=== PATIENT | female | born 1990 | race Caucasian/White ===

== ENCOUNTER 2021-07-06 14:59 | Day surgery (SDC) | payer BC, SELFPAY ==
[~2021-07-06] VITALS: Ht 160 cm; Wt 75.3 kg
[2021-07-06 15:48] LABS: BILIRUBIN,URINE NEGATIVE (NEGATIVE); BLOOD, URINE NEGATIVE (NEGATIVE); CLARITY/URINE CLEAR (CLEAR); COLOR,URINE YELLOW (YELLOW); GLUCOSE,URINE NEGATIVE (NEGATIVE); KETONES,URINE NEGATIVE (NEGATIVE); LEUKOCYTE ESTERASE ,URINE NEGATIVE (NEGATIVE); NITRITE, URINE NEGATIVE (NEGATIVE); PROTEIN URINE NEGATIVE (NEGATIVE); UROBILINOGEN,URINE 0.2 (0.2-1.0)
[2021-07-06 15:51] LABS: BASOPHILS # (AUTO) 0.1 K/uL (0.0-0.2); BASOPHILS % (AUTO) 0.5 % (0.0-2.0); EOSINOPHILS # (AUTO) 0.1 K/uL (0.0-0.4); EOSINOPHILS % (AUTO) 0.6 % (0.0-4.0); HEMATOCRIT 37.6 % (36-48); HEMOGLOBIN 13.1 g/dL (12.0-16.0); LYMPHOCYTES # (AUTO) 2.8 K/uL (1.0-5.5); LYMPHOCYTES % (AUTO) 21.9 % (20.5-51.5); MEAN CORPUSCULAR HEMOGLOBIN 33 pg (27-31); MEAN CORPUSCULAR HGB CONC 35 % (32-36); MEAN CORPUSCULAR VOLUME 94 fL (79.0-98.0); MONOCYTES # (AUTO) 0.5 K/uL (0.0-1.0); MONOCYTES % (AUTO) 4.3 % (1.7-9.3); NEUTROPHILS # (AUTO) 9.2 K/uL (1.8-7.7); NEUTROPHILS % (AUTO) 72.7 % (40.0-70.0); PLATELET COUNT (AUTO) 285 K/uL (130-430); RED BLOOD CELL COUNT(AUTO) 4.02 MIL/uL (4.2-6.2); RED CELL DISTRIBUTION WIDTH 12.3 % (9.0-15.0); WHITE BLOOD COUNT (AUTO) 12.6 K/uL (4.8-10.8)
[2021-07-06] MEDS ORDERED: METOCLOPRAMIDE HCL 10 MG/2 ML VIAL IVP PRN (18:15)
[2021-07-06] MEDS ORDERED: ONDANSETRON HCL 4 MG/2 ML VIAL IVP PRN ×2 (18:15→23:00)
[2021-07-06] MEDS ORDERED: fentaNYL CITRATE/PF 100 MCG/2 ML AMP IVP PRN (18:15)
[2021-07-06 20:44] VITALS: BP_SYST 128
[2021-07-06] MEDS ORDERED: ROCURONIUM BROMIDE 10 MG/ML (ZEMURON) ONE (20:50)
[2021-07-06] MEDS ORDERED: BUPIVACAINE /EPINEPHRINE/PF 0.5% 30 ML VIAL INJ ONE (20:50)
[2021-07-06] MEDS ORDERED: PROPOFOL 200MG/ 20ML VIAL (DIPRIVAN) IV ONE (20:50)
[2021-07-06] MEDS ORDERED: fentaNYL CITRATE/PF 100 MCG/2 ML AMP ONE ×3 (20:50→21:31)
[2021-07-06] MEDS ORDERED: SEVOFLURANE 15 MIN GAS INH ONE (20:50)
[2021-07-06] MEDS ORDERED: CEFAZOLIN 2 GM IVPB PREMIX 50 ML IV ONE (20:50)
[2021-07-06] MEDS ORDERED: LR 1,000 ML IV.SOLN IV ONE (20:50)
[2021-07-06] MEDS ORDERED: MIDAZOLAM HCL 5 MG/ML VIAL (VERSED) IV ONE (20:50)
[2021-07-06] MEDS ORDERED: MEPERIDINE HCL/PF 25 MG/ML DISP.SYRIN ONE (20:52)
[2021-07-06] MEDS: fentaNYL CITRATE/PF 100 MCG/2 ML AMP IVP PRN ×4 (21:03→21:58)
[2021-07-06] MEDS ORDERED: TEMAZEPAM 15 MG CAPSULE PO PRN (23:00)
[2021-07-06] MEDS ORDERED: MORPHINE SULFATE 10 MG/ML VIAL IM PRN (23:00)
[2021-07-06] MEDS ORDERED: OXYCODONE/ACETAMINOPHEN 5-325 TABLET PO PRN (23:00)
[2021-07-06] MEDS ORDERED: HYDROcodone/ACETAMIN 5-325 MG TAB (NORCO/ VICODIN) PO PRN (23:00)
[2021-07-06] MEDS ORDERED: LR 1,000 ML IV SCH (23:00)
[2021-07-06] MEDS ORDERED: NALOXONE HCL 0.4 MG/ML AMP (NARCAN) IVP PRN (23:00)
[2021-07-06] MEDS: OXYCODONE/ACETAMINOPHEN 5-325 TABLET PO PRN (23:05)
[2021-07-06] MEDS ORDERED: OXYCODONE/ACETAMINOPHEN 5-325 TABLET ONE (23:08)
[2021-07-07] MEDS ORDERED: SIMETHICONE 80 MG TAB.CHEW PO PRN (05:45)
[2021-07-07] MEDS ORDERED: IBUPROFEN 600 MG TABLET PO SCH (06:00)
[2021-07-07] MEDS: OXYCODONE/ACETAMINOPHEN 5-325 TABLET PO PRN (06:07)
== END 2021-07-07 06:56 | disposition home or self-care (01) ==
LOC: SOR 14:59 → SPU 22:52 → UNDOADMOB 22:52 → SPU 22:53 → UNDODISOB 07-07 06:56 → SDS 07-07 06:56
PROVIDERS: ATTEND Specialist
DX: O00.90 Unspecified ectopic pregnancy without intrauterine pregnancy (principal); I10 Essential (primary) hypertension; Z88.0 Allergy status to penicillin; Z79.899 Other long term (current) drug therapy; Z20.822 Contact with and (suspected) exposure to COVID-19
CPT/HCPCS: 36415; 59150; 81003; 85025; 87086; 87426; 88305; C1727; C1782; J2175; J3010; J0690; J2250; J2704; J3490; J7120